=== PATIENT | male | born 1940 | race Caucasian/White ===

== ENCOUNTER → 2017-11-29 | Outpatient (CLI) | payer MEDICARE, BC | LOC: COL.RAD 09:13 | DX: C61 Malignant neoplasm of prostate (principal); I10 Essential (primary) hypertension; Z79.82 Long term (current) use of aspirin; Z87.891 Personal history of nicotine dependence; Z80.52 Family history of malignant neoplasm of bladder | CPT/HCPCS: A9503 ==